=== PATIENT | female | born 1965 | race Caucasian/White ===

== ENCOUNTER 2023-09-07 10:00 | Day surgery (SDC) | payer MEDICARE ==
--- NOTE | 2023-09-07 08:08 | HP ---
DATE OF SURGERY: 09/07/2023 HISTORY OF PRESENT ILLNESS: The patient is a 58-year-old with history of polyps in the past. Last colonoscopy in 2013. She is in need of follow up colonoscopy. No bloody stools. No change in bowel habits. Family history of uncle with colon cancer, sister with rectal cancer. PAST MEDICAL HISTORY: Anxiety, depression, hypertension, renal disease, arthritis, hyperlipidemia and diabetes mellitus type II. Pulmonary embolism in the past. PAST SURGICAL HISTORY: T&A. Foot surgery. D&C. Cholecystectomy. MEDICATIONS: Xarelto, Nystatin, Xanax, fluticasone, Baclofen, Simvastatin, fish oil, hydrochlorothiazide, tizanidine, atenolol, potassium chloride, Farxiga, vitamin D3, Lisinopril, tamsulosin, Victoza, lamotrigine, duloxetine, hydroxyzine. ALLERGIES: GABAPENTIN. METOPROLOL. MORPHINE. ADHESIVE. FAMILY HISTORY: Diabetes, heart disease, prostate cancer, colon cancer. SOCIAL HISTORY: Former smoker. No alcohol abuse. REVIEW OF SYSTEMS: Twelve systems reviewed. No chest pain or palpitations. Other systems negative or noncontributory as above and per preadmission questionnaire. PHYSICAL EXAMINATION: Height 5 feet 11 inches. BMI 46. GENERAL: No acute distress. HEENT: Sclerae nonicteric. EOMI. Oral mucous membranes moist. NECK: No JVD. CHEST: Equal excursion, nonlabored breathing. Breath sounds symmetrical. CVS: Regular rate and rhythm. ABDOMEN: Soft, obese. EXTREMITIES: No cyanosis or edema. NEURO: Alert, oriented, moving extremities symmetrically. RECTAL: Deferred timed to endoscopy exam. PSYCH: Appropriate mood and affect. SKIN: Dry. IMPRESSION: History of polyps, family history of colorectal cancer. She is in need of follow up screening colonoscopy. I feel the patient is a candidate. She was shown the risk sheet, explained the procedure in detail including but not limited to risk of bleeding or infection, risk of bowel injury or perforation possibly requiring further procedure, risk of incomplete exam possibly requiring barium enema, other studies or procedures, possible missed or nondiagnosis, possible need for other procedure or referral. Risk of sedation or anesthesia, risk of bowel prep but not limited to. Otherwise, will plan on screening colonoscopy under MAC anesthesia as an outpatient. Otherwise, continue medications for anxiety, hypertension, diabetes, lipids and arthritis.
[~2023-09-07 10:00] MED LIST: Lactated Ringers 1,000 ML IV ONE
[2023-09-07] MEDS: Lactated Ringers 1,000 ML IV SCH (10:09)
[2023-09-07] MEDS: Sodium Chloride 0.9% 1000 ML 1,000 ML IV SCH (10:13)
[2023-09-07 10:31] VITALS: RESP 18
[2023-09-07] MEDS ORDERED: DIPRIVAN 200 MG/20 ML IV ONE ×2 (12:25→12:46)
[2023-09-07] MEDS ORDERED: Xylocaine-Mpf 2% 5 Ml Vial ONE (12:25)
[2023-09-07] MEDS ORDERED: Ephedrine Sulfate 50 MG/ML ONE (12:49)
[2023-09-07 13:45] VITALS: BP 117/79; PULSE 75; TEMP 97; O2SAT 96
--- NOTE | 2023-09-08 09:40 | OP ---
SURGERY DATE/TIME: 09/07/2023 1228 PREOPERATIVE DIAGNOSES: 1) History of polyps, family history of colon cancer, needs follow up screening colonoscopy. 2) ASA Class III. POSTOPERATIVE DIAGNOSES: 1) Fair limited bowel prep. 2) ASA Class III. 3) Withdrawal time approximately nine minutes. 4) Small polyps ascending colon, transverse colon, sigmoid colon, rectosigmoid colon. 5) A few small diverticula. PROCEDURES: 1) Colonoscopy to cecum. 2) Hot biopsy polypectomy ascending colon polyp. 3) Hot biopsy polypectomy transverse colon polyp x2. 4) Hot biopsy polypectomy sigmoid colon polyp. 5) Hot biopsy polypectomy of rectosigmoid polyp x1. SURGEON: Dr. Michael Hammond M.D. ANESTHESIA: MAC. QUANTITATIVE BLOOD LOSS: Minimal. INDICATIONS: As noted above. Risks and benefits explained in detail but not limited to and consent obtained. DESCRIPTION OF PROCEDURE AND FINDINGS: The patient is taken to the endoscopy room. MAC anesthesia induced. After official time out and no disagreement with planned procedure, digital rectal exam did not reveal any rectal masses. She did have some small internal and external hemorrhoids. Video colonoscope inserted and passed up through the tortuous sigmoid, descending, transverse and ascending colon around to the cecum. Appendiceal orifice and ileocecal valve well visualized and photo documented. Prep overall was on the fair limited side with large amount of liquidy semisolid stool throughout the colon this is suctioned and irrigated as clear as possible limiting exam for very small lesions. Scope slowly and carefully withdrawn over the next nine minutes or so stopping to remove small polyps ascending colon, transverse colon x2, sigmoid colon x1 and rectosigmoid colon x1. She had a few tiny diverticula in the left colon. No signs of any large polyps, masses or obstructing lesions. She had some small hemorrhoids. The scope is withdrawn, The patient tolerated the procedure well. There were no immediate complications. Findings discussed with the family out in the waiting area. She should resume her Lovenox tomorrow morning and if she has adequate hemostasis in four or five days she can resume her Xarelto.
== END 2023-09-07 13:45 | disposition home or self-care (01) ==
LOC: SDC 10:00
PROVIDERS: ATTEND Surgery
DX: Z12.11 Encounter for screening for malignant neoplasm of colon (principal); Z09 Encounter for follow-up examination after completed treatment for conditions other than malignant neoplasm; Z86.010 Personal history of colon polyps; Z80.0 Family history of malignant neoplasm of digestive organs; E11.9 Type 2 diabetes mellitus without complications; I10 Essential (primary) hypertension; K57.30 Diverticulosis of large intestine without perforation or abscess without bleeding; K64.4 Residual hemorrhoidal skin tags; K64.8 Other hemorrhoids; D12.7 Benign neoplasm of rectosigmoid junction; D12.2 Benign neoplasm of ascending colon; D12.5 Benign neoplasm of sigmoid colon; D12.3 Benign neoplasm of transverse colon
CPT/HCPCS: 82947; 93005; J2704